=== PATIENT | female | born 1975 ===

== ENCOUNTER 2017-01-14 10:10 | Emergency (ER) | payer MEDICAID, OTHER ==
[2017-01-14 10:13] VITALS: BP 116/58; PULSE 86; RESP 18; TEMP 98.3; O2SAT 99
[2017-01-14 10:14] VITALS: BMI 33.3
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
== END 2017-01-14 13:36 | disposition home or self-care (01) ==
LOC: EDBD → H.ER 10:10
DX: M54.9 Dorsalgia, unspecified (principal); M54.2 Cervicalgia

== ENCOUNTER 2017-01-14 13:54 | Inpatient (IN) | payer OTHER, MEDICAID ==
[2017-01-14 13:54] VITALS: BMI 33.3
--- NOTE | 2017-01-14 14:12 | ED PDOC ---
HPI: General Adult Time Seen by Provider: 01/14/17 14:10 Chief Complaint (Provider): pain History Per: Patient Additional Complaint(s): Patient was seen in ED earlier for low back pain and was treated in ED with PO valium, IM morphine and IM toradol. Patient felt better after meds and was discharged with rx flexeril and prednisone. Patient left ED and got a cup of coffee but when she took a sip of the coffee she felt sharp pain in upper abdomen. She then came back to ED to be seen again. Upon arrival she rates upper abd pain as 7/10, states the pain does not radiate. Patient states the sip of coffee she drank was the first this ate today. Patient denies fever, chills, chest pain SOB or DILL. Past Medical History Reviewed: Historical Data, Nursing Documentation, Vital Signs Vital Signs: Last Vital Signs Temp 98.9 F 01/14/17 14:12 Pulse 64 01/14/17 14:12 Resp 21 01/14/17 14:12 BP 111/59 L 01/14/17 14:12 Pulse Ox 100 01/14/17 19:33 - Medical History PMH: No Chronic Diseases - Surgical History Surgical History: No Surg Hx - Family History Family History: States: No Known Family Hx - Living Arrangements Living Arrangements: With Family - Social History Current smoker - smoking cessation education provided: No Alcohol: None Drugs: Denies - Home Medications Home Medications: Ambulatory Orders Medication Instructions Recorded Metoclopramide [Reglan] 10 mg PO Q6 PRN #20 tab 10/20/15 Cetirizine HCl [Zyrtec] 10 mg PO DAILY #10 capsule 01/14/17 Cyclobenzaprine [Cyclobenzaprine 10 mg PO TID #10 tab 01/14/17 HCl] Methylprednisolone [Medrol Dose 4 mg PO DAILY #21 tab 01/14/17 Pack (21 tabs)] - Allergies Allergies/Adverse Reactions: Allergies Allergy/AdvReac Type Severity Reaction Status Date / Time morphine AdvReac ITCHING Verified 01/14/17 13:36 Review of Systems ROS Statement: Except As Marked, All Systems Reviewed And Found Negative Constitutional: Negative for: Fever Cardiovascular: Negative for: Chest Pain Respiratory: Negative for: Cough Gastrointestinal: Positive for: Abdominal Pain. Negative for: Nausea, Vomiting Physical Exam - Reviewed Nursing Documentation Reviewed: Yes Vital Signs Reviewed: Yes - Physical Exam Appears: Positive for: Well, Non-toxic, No Acute Distress Skin: Negative for: Rash Cardiovascular/Chest: Positive for: Regular Rate, Rhythm Respiratory: Positive for: Normal Breath Sounds Gastrointestinal/Abdominal: Positive for: Normal Exam, Soft, Tenderness (mild RUQ tenderness, no rebound or guarding). Negative for: Distended Back: Negative for: L CVA Tenderness, R CVA Tenderness Extremity: Positive for: Normal ROM. Negative for: Pedal Edema Neurologic/Psych: Positive for: Alert, Oriented - Laboratory Results Result Diagrams: 01/14/17 18:00 01/14/17 18:00 Urine POC: Negative - ECG Interpretation Of ECG: NSR 64 bpm, no acute finding, reviewed by PA and ED attending. O2 Sat by Pulse Oximetry: 100 Pulse Ox Interpretation: Normal - Other Rad Abd US X-Ray: Read By Radiologist X-Ray Interpretation: see below Medical Decision Making Medical Decision Makin41 year old with abdominal pain. Patient is in no distress upon arrival, vital signs are stable. Plan: Glucose POC: 96 Abdominal US Labs US: LIVER: Measures seventeen cm. Patent portal vein. Portal venous flow: Hepatopetal. Variable echogenicity of the liver parenchyma. No mass. No intrahepatic bile duct dilatation. GALLBLADDER: Cholelithiasis. Negative study for gallbladder wall thickening, pericholecystic fluid, sonographic Irwin's sign. Solitary gallstone 2.6 cm in the neck of the gallbladder. COMMON BILE DUCT : Measures 6.0 mm. No stones. No dilatation. PANCREAS: Unremarkable as visualized. No mass. No ductal dilatation. RIGHT KIDNEY: Measures 4.7 x 9.5cm. Normal echogenicity. No calculus, mass, or hydronephrosis. LEFT KIDNEY: Measures 4.8 x 11.4cm. Normal echogenicity. No calculus, mass, or hydronephrosis. SPLEEN: Normal in size and contour. No mass. AORTA: No aneurysmal dilatation. IVC: Unremarkable. OTHER FINDINGS: None. IMPRESSION: Cholelithiasis. No sonographic evidence of acute cholecystitis. No significant interval change compared to the prior examination(s). Dr. Davison, PMD to admit patient. Case d/w Dr. Ortiz, surgery front office manager who will see patient. compliance vice president paged to see patient in ED, Dr. Salazar to come see patient at bedside. Patient is aware of and agrees with admission. Disposition - Clinical Impression Clinical Impression: Gallstones, Elevated liver enzymes - Patient ED Disposition Is Patient to be Admitted: Yes - Disposition Disposition Time: 19:02 Condition: FAIR - Pt Status Changed To: Hospital Disposition Of: Inpatient - Admit Certification Admit to Inpatient:: After my assessment, the patient will require hospitalization for at least two midnights. This is because of the severity of symptoms shown, intensity of services needed, and/or the medical risk in this patient being treated as an outpatient. Results - Lab Results Lab Results: 01/14/17 18:00 WBC 12.9 H RBC 4.95 Hgb 12.2 Hct 39.1 MCV 79.0 L D MCH 24.6 L MCHC 31.1 L RDW 18.2 H Plt Count 305 MPV 8.1 Neut % (Auto) 78.8 H Lymph % (Auto) 13.8 L [place] % (Auto) 6.3 Eos % (Auto) 0.7 Baso % (Auto) 0.4 Neut # 10.2 H Lymph # 1.8 [place] # 0.8 Eos # 0.1 Baso # 0.1 Sodium 143 Potassium 4.1 Chloride 108 H Carbon Dioxide 24 Anion Gap 15 BUN 15 Creatinine 0.6 L Est GFR ( Amer) > 60 Est GFR (Non-Af Amer) > 60 Random Glucose 85 Calcium 8.7 Total Bilirubin 0.7 AST 251 H D ALT 152 H D Alkaline Phosphatase 80 Total Protein 6.7 Albumin 3.7 Globulin 3.0 Albumin/Globulin Ratio 1.2
--- NOTE | 2017-01-14 17:40 | US ---
HISTORY: epigastric/ruq abd pain COMPARISON: 02/07/2013. TECHNIQUE: Sonographic evaluation of the abdomen. FINDINGS: LIVER: Measures seventeen cm. Patent portal vein. Portal venous flow: Hepatopetal. Variable echogenicity of the liver parenchyma. No mass. No intrahepatic bile duct dilatation. GALLBLADDER: Cholelithiasis. Negative study for gallbladder wall thickening, pericholecystic fluid, sonographic Irwin's sign. Solitary gallstone 2.6 cm in the neck of the gallbladder. COMMON BILE DUCT: Measures 6.0 mm. No stones. No dilatation. PANCREAS: Unremarkable as visualized. No mass. No ductal dilatation. RIGHT KIDNEY: Measures 4.7 x 9.5cm. Normal echogenicity. No calculus, mass, or hydronephrosis. LEFT KIDNEY: Measures 4.8 x 11.4cm. Normal echogenicity. No calculus, mass, or hydronephrosis. SPLEEN: Normal in size and contour. No mass. AORTA: No aneurysmal dilatation. IVC: Unremarkable. OTHER FINDINGS: None. IMPRESSION: Cholelithiasis. No sonographic evidence of acute cholecystitis. No significant interval change compared to the prior examination(s).
[2017-01-14 18:13] LABS: BASO # 0.1 K/uL (0.0-0.2); BASO % 0.4 % (0.0-2.0); EOS # 0.1 K/uL (0.0-0.7); EOS % 0.7 % (0.0-4.0); HEMATOCRIT 39.1 % (34.0-47.0); LYMPH # 1.8 K/uL (1.0-4.3); LYMPH % 13.8 % (20.0-40.0); MEAN CORPUSCULAR HEMOGLOBIN 24.6 pg (27.0-31.0); MEAN CORPUSCULAR HGB CONC 31.1 g/dL (33.0-37.0); MEAN PLATELET VOLUME 8.1 fl (7.2-11.7); MONO # 0.8 K/uL (0.0-0.8); MONO % 6.3 % (0.0-10.0); NEUT # 10.2 K/uL (1.8-7.0); NEUT % 78.8 % (50.0-75.0); RED CELL DISTRIBUTION WIDTH 18.2 % (11.5-14.5); WHITE BLOOD COUNT 12.9 K/uL (4.8-10.8)
[2017-01-14 18:22] LABS: ALB/GLOB RATIO 1.2 (1.0-2.1); ALKALINE PHOSPHATASE 80 U/L (38-126); ALT/SGPT 152 U/L (9-52); AST/SGOT 251 U/L (14-36); BILIRUBIN,TOTAL 0.7 mg/dl (0.2-1.3); BLOOD UREA NITROGEN 15 mg/dl (7-17); CALCIUM 8.7 mg/dL (8.4-10.2); CARBON DIOXIDE 24 mmol/L (22-30); CHLORIDE 108 mmol/L (98-107); GFR AFRICAN-AMERICAN > 60; GLUCOSE,RANDOM 85 mg/dL (65-105); POTASSIUM 4.1 MMOL/L (3.6-5.0); SODIUM 143 mmol/l (132-148); TOTAL PROTEIN 6.7 G/DL (6.3-8.2)
[2017-01-14] MEDS ORDERED: Ampicillin/Sulbactam 3 GM in Sodium Chloride 0.9% 100 ML IVPB STA (18:58)
[2017-01-14] MEDS ORDERED: Sodium Chloride 0.9% 1,000 ML IV STA (18:59)
[2017-01-14 20:09] LABS: RBC URINE 4 /hpf (0-3); URINE BACTERIA RARE (<OCC); URINE BILIRUBIN NEGATIVE (NEGATIVE); URINE BLOOD NEGATIVE (NEGATIVE); URINE COLOR YELLOW (YELLOW); URINE GLUCOSE (UA) NEG (Normal); URINE KETONE NEGATIVE (NEGATIVE); URINE LEUKOCYTE ESTERASE MOD Leu/uL (Negative); URINE PROTEIN NEGATIVE (NEGATIVE); URINE UROBILINOGEN 0.2-1.0 mg/dL (0.2-1.0); WBC URINE 62 /hpf (0-5)
[2017-01-14] MEDS ORDERED: Iohexol 240 (50 ml) PO ONE (20:38)
[2017-01-14 20:42] LABS: PARTIAL THROMBOPLASTIN TIME 50.8 SECONDS (23.3-32.5)
--- NOTE | 2017-01-14 20:48 | CP.PCM.CON ---
<Brett Salazar - Last Filed: 01/14/17 20:40> History of Present Illness - History of Present Illness History of Present Illness: General Surgery Consult Re: Cholelithiasis HPI: 41F presented to ED after being see and D/Herve for worsening chronic back pain. After being DCed, pt had a coffee with skim milk and had sudden stabbing RUQ and epigastric pain. She became diaphoretic and had a near syncopal episode. She has never had this pain before. No F/C, N/V/D/C, SOB, chest pain, arm pain, dysuria. When asked to point to where most pain is now she points to RLQ. PMH: Chronic back pain 2/2 herniated discs PSH: Denies SH: +tobacco use, occasional EtOH, No drug use All: NKDA, feels itchy with morphine Meds: Aleve for back pain Review of Systems - Review of Systems All systems: reviewed and no additional remarkable complaints except (as per HPI ) Past Patient History - Infectious Disease Hx of Infectious Diseases: None - Past Social History Alcohol: None Drugs: Denies - CARDIAC Hx Cardiac Disorders: No - PULMONARY Hx Respiratory Disorders: No - NEUROLOGICAL Hx Neurological Disorder: No - HEENT Hx HEENT Problems: No - RENAL Hx Chronic Kidney Disease: No - ENDOCRINE/METABOLIC Hx Endocrine Disorders: No - HEMATOLOGICAL/ONCOLOGICAL Hx Blood Disorders: No - INTEGUMENTARY Hx Dermatological Problems: No - MUSCULOSKELETAL/RHEUMATOLOGICAL Hx Musculoskeletal Disorders: No Other/Comment: sciatica - GASTROINTESTINAL Hx Gastrointestinal Disorders: No - GENITOURINARY/GYNECOLOGICAL Hx Genitourinary Disorders: No - PSYCHIATRIC Hx Psychophysiologic Disorder: No Hx Substance Use: No - SURGICAL HISTORY Hx Surgeries: No - ANESTHESIA Hx Anesthesia: No Meds Allergies/Adverse Reactions: Allergies Allergy/AdvReac Type Severity Reaction Status Date / Time morphine AdvReac ITCHING Verified 01/14/17 13:36 - Medications Medications: Current Medications Sodium Chloride (Sodium Chloride 0.9%) 1,000 mls @ 125 mls/hr IV .Q8H STA Stop: 01/15/17 02:58 Last Admin: 01/14/17 19:08 Dose: 125 mls/hr Iohexol (Omnipaque 240 (50 Ml)) 50 ml PO ONCE ONE Stop: 01/14/17 20:39 Physical Exam - Constitutional Appears: Non-toxic, No Acute Distress - Head Exam Head Exam: ATRAUMATIC, NORMOCEPHALIC - Eye Exam Eye Exam: EOMI. absent: Scleral icterus - ENT Exam ENT Exam: Mucous Membranes Dry Additional comments: trachea midline - Respiratory Exam Respiratory Exam: NORMAL BREATHING PATTERN. absent: Respiratory Distress - Cardiovascular Exam Cardiovascular Exam: RRR, +S1, +S2 - GI/Abdominal Exam GI & Abdominal Exam: Guarding (mild over whole abd), Soft, Tenderness ( diffusely over abdomen ). absent: Distended, Firm, Rebound, Rigid - Rectal Exam Rectal Exam: Deferred - Extremities Exam Extremities exam: Positive for: pedal pulses present. Negative for: calf tenderness, pedal edema - Back Exam Back exam: absent: CVA tenderness (L), CVA tenderness (R) - Neurological Exam Neurological exam: Alert, Oriented x3 - Psychiatric Exam Psychiatric exam: Normal Affect, Normal Mood - Skin Skin Exam: Dry, Warm Results - Vital Signs Recent Vital Signs: Last Vital Signs Temp 98.5 F 01/14/17 20:27 Pulse 68 01/14/17 20:27 Resp 18 01/14/17 20:27 BP 108/51 L 01/14/17 20:27 Pulse Ox 98 01/14/17 20:27 - Labs Result Diagrams: 01/14/17 18:00 01/14/17 18:00 Labs: Laboratory Results - last 24 hr 01/14/17 19:20 Urine Color Yellow Urine Clarity Cloudy Urine pH 6.0 Ur Specific [place] 1.024 Urine Protein Negative Urine Glucose (UA) Neg Urine Ketones Negative Urine Blood Negative Urine Nitrate Negative Urine Bilirubin Negative Urine Urobilinogen 0.2-1.0 Ur Leukocyte Esterase Mod Urine RBC (Auto) 4 H Urine Microscopic WBC 62 H Ur Squamous Epith Cells 46 H Urine Bacteria Rare - Imaging and Cardiology US - abdomen Status: Image reviewed by me, Report reviewed by me Assessment & Plan - Assessment and Plan (Free Text) Assessment: 41F with diffuse abdominal pain and cholelithiasis Plan: CT abd/pelvis with PO&IV contrast to rule out other pathology NPO after PO contrast done. Abx IVF Analgesia Annafran SCDs D/W Dr. Diana Salazar PGY3 <Edi Ortiz - Last Filed: 01/15/17 19:22> History of Present Illness - History of Present Illness History of Present Illness: Patient was seen and examined at the bedside. Agree with resident's note above Meds - Medications Medications: Current Medications Diphenhydramine HCl (Benadryl) 25 mg IVP Q6 PRN PRN Reason: Itching / Pruritus Hydromorphone HCl (Dilaudid) 1 mg IVP Q4 PRN PRN Reason: Pain, severe (8-10) Last Admin: 01/15/17 10:42 Dose: 1 mg Piperacillin Sod/Tazobactam (Sod 3.375 gm/ Sodium Chloride) 100 mls @ 100 mls/ hr IVPB Q6 GINETTE Last Admin: 01/15/17 16:26 Dose: 100 mls/hr Sodium Chloride (Sodium Chloride 0.9%) 1,000 mls @ 125 mls/hr IV .Q8H GINETTE Stop: 01/16/17 08:46 Last Admin: 01/15/17 16:26 Dose: 125 mls/hr Morphine Sulfate (Morphine) 4 mg IVP Q4 PRN PRN Reason: Pain, moderate (4-7) Ondansetron HCl (Zofran Inj) 4 mg IVP Q4 PRN PRN Reason: Nausea/Vomiting Results - Vital Signs Recent Vital Signs: Last Vital Signs Temp 99 F 01/15/17 16:49 Pulse 65 01/15/17 16:49 Resp 18 01/15/17 16:49 BP 110/65 01/15/17 16:49 Pulse Ox 99 01/15/17 16:49 - Labs Result Diagrams: 01/15/17 06:30 01/15/17 06:30 Labs: Laboratory Results - last 24 hr 01/14/17 01/14/17 01/15/17 19:15 19:20 06:30 WBC 9.5 RBC 4.36 Hgb 10.9 L Hct 34.5 MCV 79.1 L MCH 25.1 L MCHC 31.7 L RDW 17.7 H Plt Count 277 PT 18.2 H INR 1.75 H APTT 50.8 H Sodium 141 Potassium 3.5 L Chloride 108 H Carbon Dioxide 23 Anion Gap 14 BUN 13 Creatinine 0.8 Est GFR ( Amer) > 60 Est GFR (Non-Af Amer) > 60 Random Glucose 87 Calcium 8.1 L Total Bilirubin 0.9 AST 321 H D ALT 231 H D Alkaline Phosphatase 83 Total Protein 5.8 L Albumin 3.1 L Globulin 2.6 Albumin/Globulin Ratio 1.2 Urine Color Yellow Urine Clarity Cloudy Urine pH 6.0 Ur Specific [place] 1.024 Urine Protein Negative Urine Glucose (UA) Neg Urine Ketones Negative Urine Blood Negative Urine Nitrate Negative Urine Bilirubin Negative Urine Urobilinogen 0.2-1.0 Ur Leukocyte Esterase Mod Urine RBC (Auto) 4 H Urine Microscopic WBC 62 H Ur Squamous Epith Cells 46 H Urine Bacteria Rare
[2017-01-15] MEDS: Piperacillin/Tazobact 3.375 GM in Sodium Chloride 0.9% 100 ML IVPB SCH ×5 (00:43→21:00)
[2017-01-15] MEDS ORDERED: DiphenhydrAMINE 50 mg/ml Inj IVP STA (03:09)
[2017-01-15] MEDS ORDERED: Iohexol 240 (50 ml) ONE (06:15)
[2017-01-15 08:08] LABS: HEMATOCRIT 34.5 % (34.0-47.0); MEAN CELL VOLUME 79.1 fl (81.0-99.0); MEAN CORPUSCULAR HEMOGLOBIN 25.1 pg (27.0-31.0); MEAN CORPUSCULAR HGB CONC 31.7 g/dL (33.0-37.0); RED CELL DISTRIBUTION WIDTH 17.7 % (11.5-14.5); WHITE BLOOD COUNT 9.5 K/uL (4.8-10.8)
[2017-01-15 08:31] LABS: ALB/GLOB RATIO 1.2 (1.0-2.1); ALKALINE PHOSPHATASE 83 U/L (38-126); ALT/SGPT 231 U/L (9-52); AST/SGOT 321 U/L (14-36); BILIRUBIN,TOTAL 0.9 mg/dl (0.2-1.3); BLOOD UREA NITROGEN 13 mg/dl (7-17); CALCIUM 8.1 mg/dL (8.4-10.2); CARBON DIOXIDE 23 mmol/L (22-30); CHLORIDE 108 mmol/L (98-107); GFR AFRICAN-AMERICAN > 60; GLUCOSE,RANDOM 87 mg/dL (65-105); POTASSIUM 3.5 MMOL/L (3.6-5.0); SODIUM 141 mmol/l (132-148); TOTAL PROTEIN 5.8 G/DL (6.3-8.2)
[2017-01-15] MEDS: Sodium Chloride 0.9% 1,000 ML IV SCH ×3 (08:59→20:33)
--- NOTE | 2017-01-15 09:08 | CP.PCM.PN ---
<Brett Salazar - Last Filed: 01/15/17 09:06> Subjective - Date & Time of Evaluation Date of Evaluation: 01/15/17 Time of Evaluation: 08:50 - Subjective Subjective: General Surgery Pt S&E, NAEO. Pt c/o severe back pain. She has not been getting morphine due to puritis side effect. Finished oral contrast around 6 AM. Objective - Vital Signs/Intake and Output Vital Signs (last 24 hours): Temp Pulse Resp BP Pulse Ox 97.5 F L 98 H 20 110/70 96 01/15/17 07:54 01/15/17 07:54 01/15/17 07:54 01/15/17 07:54 01/15/17 07:54 - Medications Medications: Current Medications Hydromorphone HCl (Dilaudid) 1 mg IVP Q4 PRN PRN Reason: Pain, severe (8-10) Last Admin: 01/14/17 23:55 Dose: 1 mg Piperacillin Sod/Tazobactam (Sod 3.375 gm/ Sodium Chloride) 100 mls @ 100 mls/ hr IVPB Q6 GINETTE Last Admin: 01/15/17 08:59 Dose: 100 mls/hr Sodium Chloride (Sodium Chloride 0.9%) 1,000 mls @ 125 mls/hr IV .Q8H GINETTE Stop: 01/16/17 08:46 Last Admin: 01/15/17 08:59 Dose: 125 mls/hr Morphine Sulfate (Morphine) 4 mg IVP Q4 PRN PRN Reason: Pain, moderate (4-7) Ondansetron HCl (Zofran Inj) 4 mg IVP Q4 PRN PRN Reason: Nausea/Vomiting - Labs Labs: 01/15/17 06:30 PT 18.2 SECONDS (9.6-11.2) H 01/14/17 19:15 INR 1.75 (0.92-1.08) H 01/14/17 19:15 APTT 50.8 SECONDS (23.3-32.5) H 01/14/17 19:15 - Constitutional Appears: Non-toxic, No Acute Distress - Head Exam Head Exam: ATRAUMATIC, NORMOCEPHALIC - Eye Exam Eye Exam: EOMI. absent: Scleral icterus - Respiratory Exam Respiratory Exam: NORMAL BREATHING PATTERN. absent: Respiratory Distress - GI/Abdominal Exam GI & Abdominal Exam: Soft, Tenderness (mild generalized). absent: Distended, Firm, Guarding, Rigid - Back Exam Back Exam: absent: CVA tenderness (L), CVA tenderness (R) - Neurological Exam Neurological Exam: Alert, Awake, Oriented x3 - Skin Skin Exam: Dry, Warm Assessment and Plan - Assessment and Plan (Free Text) Assessment: 41F with diffuse abdominal pain and cholelithiasis Plan: F/U CT scan benadryl for puritis Analgesia IVF F/U CMP NPO Will D/W Dr. Diana Salazar PGY3 <Edi Ortiz - Last Filed: 01/15/17 19:27> Subjective - Date & Time of Evaluation Date of Evaluation: 01/15/17 Time of Evaluation: 19:00 - Subjective Subjective: Patient was seen and examined at the bedside. Agree with resident's note above. CT scan results noted. Patient also has elevated PT/PTT/INR. Objective - Vital Signs/Intake and Output Vital Signs (last 24 hours): Temp Pulse Resp BP Pulse Ox 99 F 65 18 110/65 99 01/15/17 16:49 01/15/17 16:49 01/15/17 16:49 01/15/17 16:49 01/15/17 16:49 - Medications Medications: Current Medications Diphenhydramine HCl (Benadryl) 25 mg IVP Q6 PRN PRN Reason: Itching / Pruritus Hydromorphone HCl (Dilaudid) 1 mg IVP Q4 PRN PRN Reason: Pain, severe (8-10) Last Admin: 01/15/17 10:42 Dose: 1 mg Piperacillin Sod/Tazobactam (Sod 3.375 gm/ Sodium Chloride) 100 mls @ 100 mls/ hr IVPB Q6 GINETTE Last Admin: 01/15/17 16:26 Dose: 100 mls/hr Sodium Chloride (Sodium Chloride 0.9%) 1,000 mls @ 125 mls/hr IV .Q8H GINETTE Stop: 01/16/17 08:46 Last Admin: 01/15/17 16:26 Dose: 125 mls/hr Morphine Sulfate (Morphine) 4 mg IVP Q4 PRN PRN Reason: Pain, moderate (4-7) Ondansetron HCl (Zofran Inj) 4 mg IVP Q4 PRN PRN Reason: Nausea/Vomiting - Labs Labs: 01/15/17 06:30 01/15/17 06:30 PT 18.2 SECONDS (9.6-11.2) H 01/14/17 19:15 INR 1.75 (0.92-1.08) H 01/14/17 19:15 APTT 50.8 SECONDS (23.3-32.5) H 01/14/17 19:15 Assessment and Plan - Assessment and Plan (Free Text) Plan: - Start clear liquid diet - pain control - Repeat labs in am - Repeat PT/PTT in am - Will follow
[2017-01-15] MEDS ORDERED: Iohexol 300 50 ML ONE (09:56)
--- NOTE | 2017-01-15 11:02 | CT ---
PROCEDURE: CT Abdomen and Pelvis with oral and IV contrast. HISTORY: abdominal pain COMPARISON: Abdominal ultrasound performed 01/14/17 TECHNIQUE: Contiguous axial images of the abdomen and pelvis. Oral and IV contrast was administered. Coronal and Sagittal reformats generated and reviewed. Contrast dose: 100 mL Omnipaque Radiation dose: Total exam DLP = 1089.54 mGy-cm. This CT exam was performed using one or more of the following dose reduction techniques: Automated exposure control, adjustment of the mA and/or kV according to patient size, and/or use of iterative reconstruction technique. FINDINGS: LOWER THORAX: Bibasilar atelectasis. No visible pleural effusion or pneumothorax. LIVER: Hypoattenuation of the liver compatible with hepatic steatosis. GALLBLADDER AND BILE DUCTS: Probable gallstone within the gallbladder. Gallbladder distension. Probable mild wall thickening or pericholecystic edema. PANCREAS: Unremarkable. SPLEEN: Unremarkable. ADRENALS: Unremarkable. KIDNEYS AND URETERS: The kidneys enhance symmetrically. No hydronephrosis or obstructing renal calculus. BLADDER: The urinary bladder appears unremarkable. REPRODUCTIVE: Uterus is present. IUD. Probable bilateral ovarian cysts. APPENDIX: The appendix appears within normal limits of caliber. No secondary signs of acute appendicitis. BOWEL: The stomach is nondistended. The bowel loops appear within normal limits of caliber without evidence of intestinal obstruction. Diverticulosis without CT evidence of acute diverticulitis. PERITONEUM: No significant free fluid. No definite free air. LYMPH NODES: No bulky lymphadenopathy identified. VASCULATURE: No aortic aneurysm. BONES: No acute osseous abnormality is detected. OTHER FINDINGS: None. IMPRESSION: Probable gallstone within the gallbladder. Gallbladder distension. Probable mild wall thickening or pericholecystic edema. Correlate clinically for possibility of cholecystitis. Right upper quadrant ultrasound may be considered. Probable bilateral ovarian cysts. Diverticulosis without CT evidence of acute diverticulitis. Hepatic steatosis. Additional incidental findings as above.
--- NOTE | 2017-01-15 11:40 | CP.PCM.HP ---
History of Present Illness - History of Present Illness History of Present Illness: This is a 41 y/o female with hx of gastritis and chronic back pain was admitted for sudden increased colicky pain in the upper GI area . She went initially to the Er for recurrence of back pain was sent home. She decided to have some coffee an after intake started to have abdominal pain. At the Er she was noted to have cholelithiasis and gb wall edema on CT scan but US showed no sign of cholecystitis initial labs showed elevated liver enzymes. AST ALT but bilirubin is normal. Present on Admission - Present on Admission Any Indicators Present on Admission: No History of DVT/PE: No History of Uncontrolled Diabetes: No Urinary Catheter: No Decubitus Ulcer Present: No Past Patient History - Infectious Disease Hx of Infectious Diseases: None - Past Medical History & Family History Past Medical History?: Yes - Past Social History Smoking Status: Current Some Days Smoker - CARDIAC Hx Cardiac Disorders: No - PULMONARY Hx Respiratory Disorders: No - NEUROLOGICAL Hx Neurological Disorder: No - HEENT Hx HEENT Problems: No Other/Comment: Wears eye glasses sometimes - RENAL Hx Chronic Kidney Disease: No - ENDOCRINE/METABOLIC Hx Endocrine Disorders: No - HEMATOLOGICAL/ONCOLOGICAL Hx Blood Disorders: No - INTEGUMENTARY Hx Dermatological Problems: No - MUSCULOSKELETAL/RHEUMATOLOGICAL Hx Musculoskeletal Disorders: No Hx Falls: No - GASTROINTESTINAL Hx Gastrointestinal Disorders: No - GENITOURINARY/GYNECOLOGICAL Hx Genitourinary Disorders: No - PSYCHIATRIC Hx Psychophysiologic Disorder: No Hx Substance Use: No - SURGICAL HISTORY Hx Surgeries: No - ANESTHESIA Hx Anesthesia: Yes Hx Anesthesia Reactions: No Hx Malignant Hyperthermia: No Has any member of the family had a problem w/ anesthesia?: No Meds Allergies/Adverse Reactions: Allergies Allergy/AdvReac Type Severity Reaction Status Date / Time morphine AdvReac ITCHING Verified 01/14/17 13:36 Physical Exam - Head Exam Head Exam: NORMAL INSPECTION - Eye Exam Eye Exam: Normal appearance - ENT Exam ENT Exam: Mucous Membranes Moist - Respiratory Exam Respiratory Exam: Clear to Auscultation Bilateral - Cardiovascular Exam Cardiovascular Exam: REGULAR RHYTHM - GI/Abdominal Exam GI & Abdominal Exam: Guarding, Normal Bowel Sounds, Tenderness - Neurological Exam Neurological exam: CN II-XII Intact Results - Vital Signs Recent Vital Signs: Last Vital Signs Temp 97.5 F L 01/15/17 07:54 Pulse 98 H 01/15/17 07:54 Resp 20 01/15/17 07:54 BP 110/70 01/15/17 07:54 Pulse Ox 96 01/15/17 07:54 - Labs Result Diagrams: 01/15/17 06:30 01/15/17 06:30 Labs: Laboratory Results - last 24 hr 01/14/17 01/14/17 01/15/17 19:15 19:20 06:30 WBC 9.5 RBC 4.36 Hgb 10.9 L Hct 34.5 MCV 79.1 L MCH 25.1 L MCHC 31.7 L RDW 17.7 H Plt Count 277 PT 18.2 H INR 1.75 H APTT 50.8 H Sodium 141 Potassium 3.5 L Chloride 108 H Carbon Dioxide 23 Anion Gap 14 BUN 13 Creatinine 0.8 Est GFR ( Amer) > 60 Est GFR (Non-Af Amer) > 60 Random Glucose 87 Calcium 8.1 L Total Bilirubin 0.9 AST 321 H D ALT 231 H D Alkaline Phosphatase 83 Total Protein 5.8 L Albumin 3.1 L Globulin 2.6 Albumin/Globulin Ratio 1.2 Urine Color Yellow Urine Clarity Cloudy Urine pH 6.0 Ur Specific [place] 1.024 Urine Protein Negative Urine Glucose (UA) Neg Urine Ketones Negative Urine Blood Negative Urine Nitrate Negative Urine Bilirubin Negative Urine Urobilinogen 0.2-1.0 Ur Leukocyte Esterase Mod Urine RBC (Auto) 4 H Urine Microscopic WBC 62 H Ur Squamous Epith Cells 46 H Urine Bacteria Rare Assessment & Plan (2) Cholelithiasis Status: Acute (3) Cholecystitis Status: Acute (4) Abnormal liver enzymes Status: Acute - Assessment and Plan (Free Text) Plan: keep NPO IV fluids IV antibiotics. pantoprazole pain meds. surgical consult medically stable for surgery
--- NOTE | 2017-01-15 12:06 | RAD ---
HISTORY: Medical clearance. COMPARISON: None. FINDINGS: LUNGS: No active pulmonary disease. PLEURA: No significant pleural effusion identified, no pneumothorax apparent. CARDIOVASCULAR: Normal. OSSEOUS STRUCTURES: No significant abnormalities. VISUALIZED UPPER ABDOMEN: Normal. OTHER FINDINGS: None. IMPRESSION: No active disease.
--- NOTE | 2017-01-15 20:55 | CARD ---
APPROVED REPORT EKG Measurement Heart [id number] [place] [id number] <Conclusion> Normal sinus rhythm Normal ECG
[2017-01-15] MEDS: DiphenhydrAMINE 50 mg/ml Inj IVP PRN (21:08)
[2017-01-16] MEDS: Piperacillin/Tazobact 3.375 GM in Sodium Chloride 0.9% 100 ML IVPB SCH ×4 (04:13→21:22)
[2017-01-16 06:07] LABS: BASO % 0.5 % (0.0-2.0); EOS # 0.1 K/uL (0.0-0.7); EOS % 2.1 % (0.0-4.0); HEMATOCRIT 33.1 % (34.0-47.0); LYMPH # 2.1 K/uL (1.0-4.3); LYMPH % 29.6 % (20.0-40.0); MEAN CORPUSCULAR HEMOGLOBIN 24.9 pg (27.0-31.0); MEAN CORPUSCULAR HGB CONC 31.5 g/dL (33.0-37.0); MEAN PLATELET VOLUME 8.5 fl (7.2-11.7); MONO # 0.5 K/uL (0.0-0.8); MONO % 7.2 % (0.0-10.0); NEUT # 4.2 K/uL (1.8-7.0); NEUT % 60.6 % (50.0-75.0); RED CELL DISTRIBUTION WIDTH 18.3 % (11.5-14.5); WHITE BLOOD COUNT 6.9 K/uL (4.8-10.8)
[2017-01-16 06:17] LABS: ALB/GLOB RATIO 1.2 (1.0-2.1); ALKALINE PHOSPHATASE 126 U/L (38-126); ALT/SGPT 410 U/L (9-52); AST/SGOT 431 U/L (14-36); BILIRUBIN,TOTAL 0.9 mg/dl (0.2-1.3); BLOOD UREA NITROGEN 11 mg/dl (7-17); CALCIUM 7.7 mg/dL (8.4-10.2); CARBON DIOXIDE 22 mmol/L (22-30); CHLORIDE 109 mmol/L (98-107); GFR AFRICAN-AMERICAN > 60; GLUCOSE,RANDOM 81 mg/dL (65-105); SODIUM 142 mmol/l (132-148); TOTAL PROTEIN 5.5 G/DL (6.3-8.2)
[2017-01-16 06:25] LABS: PARTIAL THROMBOPLASTIN TIME 26.8 SECONDS (23.3-32.5)
[2017-01-16] MEDS: Sodium Chloride 0.9% 1,000 ML IV SCH ×3 (06:35→09:08)
--- NOTE | 2017-01-16 08:53 | CP.PCM.PN ---
Subjective - Date & Time of Evaluation Date of Evaluation: 01/16/17 Time of Evaluation: 08:48 - Subjective Subjective: Patient remains stable Coags profile today is normal Still with elevated AST ALT Has minimal cough. Objective - Vital Signs/Intake and Output Vital Signs (last 24 hours): Temp Pulse Resp BP Pulse Ox 98.2 F 67 18 110/68 98 01/16/17 08:45 01/16/17 08:45 01/16/17 08:45 01/16/17 08:45 01/16/17 08:45 - Medications Medications: Current Medications Diphenhydramine HCl (Benadryl) 25 mg IVP Q6 PRN PRN Reason: Itching / Pruritus Last Admin: 01/15/17 21:08 Dose: 25 mg Hydromorphone HCl (Dilaudid) 1 mg IVP Q4 PRN PRN Reason: Pain, severe (8-10) Last Admin: 01/16/17 07:59 Dose: 1 mg Piperacillin Sod/Tazobactam (Sod 3.375 gm/ Sodium Chloride) 100 mls @ 100 mls/ hr IVPB Q6 [facility] Last Admin: 01/16/17 04:13 Dose: 100 mls/hr Morphine Sulfate (Morphine) 4 mg IVP Q4 PRN PRN Reason: Pain, moderate (4-7) Ondansetron HCl (Zofran Inj) 4 mg IVP Q4 PRN PRN Reason: Nausea/Vomiting - Labs Labs: 01/16/17 04:45 01/16/17 04:45 PT 10.5 SECONDS (9.6-11.2) D 01/16/17 04:45 INR 1.01 (0.92-1.08) D 01/16/17 04:45 APTT 26.8 SECONDS (23.3-32.5) D 01/16/17 04:45 - Head Exam Head Exam: NORMAL INSPECTION - Eye Exam Eye Exam: Normal appearance - ENT Exam ENT Exam: Mucous Membranes Moist - Respiratory Exam Respiratory Exam: Decreased Breath Sounds - Cardiovascular Exam Cardiovascular Exam: REGULAR RHYTHM - GI/Abdominal Exam GI & Abdominal Exam: Normal Bowel Sounds Assessment and Plan (2) Cholelithiasis Status: Acute (3) Cholecystitis Status: Acute (4) Abnormal liver enzymes Status: Acute - Assessment and Plan (Free Text) Plan: Cont meds Cont tx IV antibiotics Clear liquids Discussed with Dr Owen Plan to do surgery in AM.
--- NOTE | 2017-01-16 09:12 | CP.PCM.PN ---
<Brett Salazar - Last Filed: 01/16/17 09:10> Subjective - Date & Time of Evaluation Date of Evaluation: 01/16/17 Time of Evaluation: 07:30 - Subjective Subjective: General Surgery Pt S&E, NAEO. still with R abd pain. No other C/O at this time Objective - Vital Signs/Intake and Output Vital Signs (last 24 hours): Temp Pulse Resp BP Pulse Ox 98.2 F 67 18 110/68 98 01/16/17 08:45 01/16/17 08:45 01/16/17 08:45 01/16/17 08:45 01/16/17 08:45 - Medications Medications: Current Medications Diphenhydramine HCl (Benadryl) 25 mg IVP Q6 PRN PRN Reason: Itching / Pruritus Last Admin: 01/15/17 21:08 Dose: 25 mg Hydromorphone HCl (Dilaudid) 1 mg IVP Q4 PRN PRN Reason: Pain, severe (8-10) Last Admin: 01/16/17 07:59 Dose: 1 mg Piperacillin Sod/Tazobactam (Sod 3.375 gm/ Sodium Chloride) 100 mls @ 100 mls/ hr IVPB Q6 [facility]TE Last Admin: 01/16/17 09:08 Dose: 100 mls/hr Morphine Sulfate (Morphine) 4 mg IVP Q4 PRN PRN Reason: Pain, moderate (4-7) Ondansetron HCl (Zofran Inj) 4 mg IVP Q4 PRN PRN Reason: Nausea/Vomiting - Labs Labs: 01/16/17 04:45 01/16/17 04:45 PT 10.5 SECONDS (9.6-11.2) D 01/16/17 04:45 INR 1.01 (0.92-1.08) D 01/16/17 04:45 APTT 26.8 SECONDS (23.3-32.5) D 01/16/17 04:45 - Constitutional Appears: Non-toxic, No Acute Distress - Head Exam Head Exam: ATRAUMATIC, NORMOCEPHALIC - Eye Exam Eye Exam: EOMI. absent: Scleral icterus - Respiratory Exam Respiratory Exam: NORMAL BREATHING PATTERN. absent: Respiratory Distress - Cardiovascular Exam Cardiovascular Exam: RRR - GI/Abdominal Exam GI & Abdominal Exam: Guarding (mild), Soft, Tenderness (in R abdomen and epigastrum). absent: Distended, Firm, Rigid, Rebound - Neurological Exam Neurological Exam: Alert, Awake, Oriented x3 - Skin Skin Exam: Dry, Warm Assessment and Plan - Assessment and Plan (Free Text) Assessment: 41F with diffuse abdominal pain and cholelithiasis Plan: Analgesia IVF MRCP ordered NPO D/W Dr. Diana Salazar PGY3 <Edi Ortiz - Last Filed: 01/16/17 13:25> Subjective - Date & Time of Evaluation Date of Evaluation: 01/16/17 Time of Evaluation: 12:30 - Subjective Subjective: Patient was seen and examined at the bedside. Agree with resident's note above. Objective - Vital Signs/Intake and Output Vital Signs (last 24 hours): Temp Pulse Resp BP Pulse Ox 98.2 F 67 18 110/68 98 01/16/17 08:45 01/16/17 08:45 01/16/17 08:45 01/16/17 08:45 01/16/17 08:45 - Medications Medications: Current Medications Diphenhydramine HCl (Benadryl) 25 mg IVP Q6 PRN PRN Reason: Itching / Pruritus Last Admin: 01/15/17 21:08 Dose: 25 mg Hydromorphone HCl (Dilaudid) 1 mg IVP Q4 PRN PRN Reason: Pain, severe (8-10) Last Admin: 01/16/17 07:59 Dose: 1 mg Piperacillin Sod/Tazobactam (Sod 3.375 gm/ Sodium Chloride) 100 mls @ 100 mls/ hr IVPB Q6 G[facility]ETTE Last Admin: 01/16/17 09:08 Dose: 100 mls/hr Dextrose/Sodium Chloride (Dextrose 5%/0.45% Ns 1000 Ml) 1,000 mls @ 100 mls/hr IV .Q10H [facility]TE Stop: 01/17/17 09:16 Last Admin: 01/16/17 11:45 Dose: 100 mls/hr Morphine Sulfate (Morphine) 4 mg IVP Q4 PRN PRN Reason: Pain, moderate (4-7) Ondansetron HCl (Zofran Inj) 4 mg IVP Q4 PRN PRN Reason: Nausea/Vomiting - Labs Labs: 01/16/17 04:45 04/17/17 04:45 PT 10.5 SECONDS (9.6-11.2) D 01/16/17 04:45 INR 1.01 (0.92-1.08) D 01/16/17 04:45 APTT 26.8 SECONDS (23.3-32.5) D 01/16/17 04:45 Assessment and Plan - Assessment and Plan (Free Text) Plan: LFTs are trending up - Will get MRCp to r/o choledocholithiasis - Pain control - IV fluids - Repeat labs in am - Will follow
[2017-01-16] MEDS: Dextrose 5%/0.45% NS 1,000 ML IV SCH ×2 (11:45→19:36)
--- NOTE | 2017-01-16 15:36 | MRI ---
MRCP Indication: Rule out choledocholithiasis Technique: Multiplanar, multisequence MR images of the abdomen were obtained, including heavily T2 weighted MRCP images of the biliary system. Rotating maximum intensity projection images of the biliary system were generated. A total of 589 images were submitted for review. Comparison: CT abdomen pelvis with contrast performed 01/15/17 Findings: Mild hepatic steatosis. Cholelithiasis. There is no intrahepatic biliary ductal dilatation. The common bile duct appears top normal in diameter measuring approximately 6 mm and tapers distally. The pancreatic duct appears within normal limits of caliber. No filling defects are seen in the common bile duct or pancreatic duct. The noncontrast adrenal glands, kidneys, spleen, and pancreas appear grossly unremarkable. No bulky abdominal lymphadenopathy is seen. No ascites. No acute osseous abnormality is detected. Impression: Cholelithiasis. No filling defects seen within the common bile duct which appears within normal limits of caliber. Preliminary impression was provided by virtual radiologic.
[2017-01-16] MEDS: DiphenhydrAMINE 50 mg/ml Inj IVP PRN ×2 (16:26→23:07)
[2017-01-17] MEDS ORDERED: DiphenhydrAMINE 50 mg/ml Inj IVP ONE (01:39)
[2017-01-17] MEDS: Piperacillin/Tazobact 3.375 GM in Sodium Chloride 0.9% 100 ML IVPB SCH ×4 (04:54→21:31)
[2017-01-17 05:35] LABS: BASO % 0.5 % (0.0-2.0); EOS # 0.2 K/uL (0.0-0.7); EOS % 2.6 % (0.0-4.0); HEMATOCRIT 32.3 % (34.0-47.0); LYMPH # 2.1 K/uL (1.0-4.3); LYMPH % 32.9 % (20.0-40.0); MEAN CORPUSCULAR HEMOGLOBIN 25.1 pg (27.0-31.0); MEAN CORPUSCULAR HGB CONC 31.7 g/dL (33.0-37.0); MEAN PLATELET VOLUME 8.3 fl (7.2-11.7); MONO # 0.5 K/uL (0.0-0.8); MONO % 8.6 % (0.0-10.0); NEUT # 3.5 K/uL (1.8-7.0); NEUT % 55.4 % (50.0-75.0); NRBC % 0.1 % (0.0-0.0); RED CELL DISTRIBUTION WIDTH 17.5 % (11.5-14.5); WHITE BLOOD COUNT 6.3 K/uL (4.8-10.8)
[2017-01-17 05:45] LABS: ALB/GLOB RATIO 1.1 (1.0-2.1); ALKALINE PHOSPHATASE 164 U/L (38-126); ALT/SGPT 437 U/L (9-52); AST/SGOT 345 U/L (14-36); BILIRUBIN,TOTAL 0.9 mg/dl (0.2-1.3); BLOOD UREA NITROGEN 8 mg/dl (7-17); CALCIUM 8.4 mg/dL (8.4-10.2); CARBON DIOXIDE 21 mmol/L (22-30); CHLORIDE 108 mmol/L (98-107); GFR AFRICAN-AMERICAN > 60; GLUCOSE,RANDOM 90 mg/dL (65-105); POTASSIUM 3.5 MMOL/L (3.6-5.0); SODIUM 142 mmol/l (132-148)
[2017-01-17] MEDS: Dextrose 5%/0.45% NS 1,000 ML IV SCH (06:01)
--- NOTE | 2017-01-17 07:41 | CP.PCM.PN ---
<Maci Atkins - Last Filed: 01/17/17 07:38> Subjective - Date & Time of Evaluation Date of Evaluation: 01/17/17 Time of Evaluation: 07:38 - Subjective Subjective: General Surgery - Dr. Ortiz Pt S&E. LEE ANN. Pt with RUQ abdominal pain, controlled with meds. She denies any N/V, remains NPO. No F/C, SOB/Cp. Objective - Vital Signs/Intake and Output Vital Signs (last 24 hours): Temp Pulse Resp BP Pulse Ox 98.7 F 57 L 18 124/82 99 01/16/17 20:17 01/16/17 20:17 01/16/17 20:17 01/16/17 20:17 01/16/17 20:17 - Medications Medications: Current Medications Diphenhydramine HCl (Benadryl) 25 mg IVP Q6 PRN PRN Reason: Itching / Pruritus Last Admin: 01/16/17 23:07 Dose: 25 mg Hydromorphone HCl (Dilaudid) 1 mg IVP Q4 PRN PRN Reason: Pain, severe (8-10) Last Admin: 01/16/17 23:06 Dose: 1 mg Piperacillin Sod/Tazobactam (Sod 3.375 gm/ Sodium Chloride) 100 mls @ 100 mls/ hr IVPB Q6 G[facility]ETTE Last Admin: 01/17/17 04:54 Dose: 100 mls/hr Dextrose/Sodium Chloride (Dextrose 5%/0.45% Ns 1000 Ml) 1,000 mls @ 100 mls/hr IV .Q10H [facility] Stop: 01/17/17 09:16 Last Admin: 01/17/17 06:01 Dose: Not Given Morphine Sulfate (Morphine) 4 mg IVP Q4 PRN PRN Reason: Pain, moderate (4-7) Last Admin: 01/16/17 15:19 Dose: 4 mg Ondansetron HCl (Zofran Inj) 4 mg IVP Q4 PRN PRN Reason: Nausea/Vomiting - Labs Labs: 01/17/17 04:35 01/17/17 04:35 PT 10.5 SECONDS (9.6-11.2) D 01/16/17 04:45 INR 1.01 (0.92-1.08) D 01/16/17 04:45 APTT 26.8 SECONDS (23.3-32.5) D 01/16/17 04:45 - Constitutional Appears: No Acute Distress - Head Exam Head Exam: ATRAUMATIC, NORMAL INSPECTION, NORMOCEPHALIC - Eye Exam Eye Exam: Normal appearance - Respiratory Exam Respiratory Exam: NORMAL BREATHING PATTERN. absent: Respiratory Distress - Cardiovascular Exam Cardiovascular Exam: REGULAR RHYTHM - GI/Abdominal Exam GI & Abdominal Exam: Soft, Tenderness (RUQ, epigastric). absent: Distended, Guarding, Rigid, Rebound - Neurological Exam Neurological Exam: Alert, Oriented x3 - Psychiatric Exam Psychiatric exam: Normal Affect, Normal Mood - Skin Skin Exam: Dry, Intact Assessment and Plan - Assessment and Plan (Free Text) Assessment: 41F w/ Cholelithiasis, transaminitis -MRCP negative for choledocholithiasis -LFTs remain elevated -Continue NPO, pain control, IVF -Will DW Dr Diana Atkins PGY2 <Edi Ortiz - Last Filed: 01/17/17 15:23> Subjective - Date & Time of Evaluation Date of Evaluation: 01/17/17 Time of Evaluation: 14:15 - Subjective Subjective: Patient was seen and examined at the bedside. Agree with resident's note above Objective - Vital Signs/Intake and Output Vital Signs (last 24 hours): Temp Pulse Resp BP Pulse Ox 98.6 F 49 L 20 100/59 L 96 01/17/17 08:27 01/17/17 08:27 01/17/17 08:27 01/17/17 08:27 01/17/17 08:27 - Medications Medications: Current Medications Diphenhydramine HCl (Benadryl) 25 mg IVP Q6 PRN PRN Reason: Itching / Pruritus Last Admin: 01/17/17 13:16 Dose: 25 mg Hydromorphone HCl (Dilaudid) 1 mg IVP Q4 PRN PRN Reason: Pain, severe (8-10) Last Admin: 01/17/17 12:25 Dose: 1 mg Piperacillin Sod/Tazobactam (Sod 3.375 gm/ Sodium Chloride) 100 mls @ 100 mls/ hr IVPB Q6 GINETTE Last Admin: 01/17/17 09:52 Dose: 100 mls/hr Potassium Chloride/Sodium Chloride (Potassium Chl 20 Meq In Ns) 1,000 mls @ 99.01 mls/hr IV .Q10H6M [facility] Last Admin: 01/17/17 12:16 Dose: 99.01 mls/hr Morphine Sulfate (Morphine) 4 mg IVP Q4 PRN PRN Reason: Pain, moderate (4-7) Last Admin: 01/16/17 15:19 Dose: 4 mg Ondansetron HCl (Zofran Inj) 4 mg IVP Q4 PRN PRN Reason: Nausea/Vomiting Pantoprazole Sodium (Protonix Inj) 40 mg IVP DAILY [facility] Last Admin: 01/17/17 12:16 Dose: 40 mg - Labs Labs: 01/17/17 04:35 01/17/17 04:35 PT 10.5 SECONDS (9.6-11.2) D 01/16/17 04:45 INR 1.01 (0.92-1.08) D 01/16/17 04:45 APTT 26.8 SECONDS (23.3-32.5) D 01/16/17 04:45 Assessment and Plan - Assessment and Plan (Free Text) Plan: - Clear liquid diet - NPO after midnight - Plan for cholecystectomy tomorrow
[2017-01-17] MEDS: Potassium CL 10 MEQ/50 ML 50 ML IVPB SCH ×2 (08:38→09:51)
[2017-01-17] MEDS: Potassium Chl 20 mEq in NS 1,000 ML IV SCH ×2 (12:16→20:40)
[2017-01-17] MEDS: DiphenhydrAMINE 50 mg/ml Inj IVP PRN ×2 (13:16→18:16)
[2017-01-18] MEDS: DiphenhydrAMINE 50 mg/ml Inj IVP PRN ×2 (00:30→21:45)
[2017-01-18] MEDS: Piperacillin/Tazobact 3.375 GM in Sodium Chloride 0.9% 100 ML IVPB SCH ×2 (04:53→09:37)
--- NOTE | 2017-01-18 09:26 | CP.PCM.PN ---
Subjective - Date & Time of Evaluation Date of Evaluation: 01/17/17 Time of Evaluation: 09:23 - Subjective Subjective: patient continues to have pain scheduled for surgery Has no vomiting has no fever. Objective - Vital Signs/Intake and Output Vital Signs (last 24 hours): Temp Pulse Resp BP Pulse Ox 989.6 F H 48 L 20 105/65 97 01/18/17 08:14 01/18/17 08:14 01/18/17 08:14 01/18/17 08:14 01/18/17 08:14 - Medications Medications: Current Medications Diphenhydramine HCl (Benadryl) 25 mg IVP Q6 PRN PRN Reason: Itching / Pruritus Last Admin: 01/18/17 00:30 Dose: 25 mg Hydromorphone HCl (Dilaudid) 1 mg IVP Q4 PRN PRN Reason: Pain, severe (8-10) Last Admin: 01/17/17 21:09 Dose: 1 mg Piperacillin Sod/Tazobactam (Sod 3.375 gm/ Sodium Chloride) 100 mls @ 100 mls/ hr IVPB Q6 [facility] Last Admin: 01/18/17 04:53 Dose: 100 mls/hr Potassium Chloride/Sodium Chloride (Potassium Chl 20 Meq In Ns) 1,000 mls @ 99.01 mls/hr IV .Q10H6M [facility] Last Admin: 01/17/17 20:40 Dose: Not Given Morphine Sulfate (Morphine) 4 mg IVP Q4 PRN PRN Reason: Pain, moderate (4-7) Last Admin: 01/16/17 15:19 Dose: 4 mg Ondansetron HCl (Zofran Inj) 4 mg IVP Q4 PRN PRN Reason: Nausea/Vomiting Last Admin: 01/17/17 19:57 Dose: 4 mg Pantoprazole Sodium (Protonix Inj) 40 mg IVP DAILY [facility] Last Admin: 01/17/17 12:16 Dose: 40 mg - Labs Labs: 01/17/17 04:35 01/17/17 04:35 PT 10.5 SECONDS (9.6-11.2) D 01/16/17 04:45 INR 1.01 (0.92-1.08) D 01/16/17 04:45 APTT 26.8 SECONDS (23.3-32.5) D 01/16/17 04:45 - Head Exam Head Exam: NORMAL INSPECTION - Eye Exam Eye Exam: Normal appearance - ENT Exam ENT Exam: Mucous Membranes Moist - Respiratory Exam Respiratory Exam: Clear to Ausculation Bilateral - Cardiovascular Exam Cardiovascular Exam: REGULAR RHYTHM - GI/Abdominal Exam GI & Abdominal Exam: Normal Bowel Sounds - Neurological Exam Neurological Exam: CN II-XII Intact, Oriented x3 - Psychiatric Exam Psychiatric exam: Normal Mood Assessment and Plan (2) Cholelithiasis Status: Acute (3) Cholecystitis Status: Acute (4) Abnormal liver enzymes Status: Acute - Assessment and Plan (Free Text) Plan: Cont meds Cont tx Cont NPO IV fluids medically stable for surgery MRCP showed cholelithiasis but no CBD stone
--- NOTE | 2017-01-18 09:28 | CP.PCM.PN ---
Subjective - Date & Time of Evaluation Date of Evaluation: 01/18/17 Time of Evaluation: 09:26 - Subjective Subjective: patient still has a lot of back pain. Noted elevated AST ALT MRCP showed no CBD stone. Objective - Vital Signs/Intake and Output Vital Signs (last 24 hours): Temp Pulse Resp BP Pulse Ox 989.6 F H 48 L 20 105/65 97 01/18/17 08:14 01/18/17 08:14 01/18/17 08:14 01/18/17 08:14 01/18/17 08:14 - Medications Medications: Current Medications Diphenhydramine HCl (Benadryl) 25 mg IVP Q6 PRN PRN Reason: Itching / Pruritus Last Admin: 01/18/17 00:30 Dose: 25 mg Hydromorphone HCl (Dilaudid) 1 mg IVP Q4 PRN PRN Reason: Pain, severe (8-10) Last Admin: 01/17/17 21:09 Dose: 1 mg Piperacillin Sod/Tazobactam (Sod 3.375 gm/ Sodium Chloride) 100 mls @ 100 mls/ hr IVPB Q6 [facility] Last Admin: 01/18/17 04:53 Dose: 100 mls/hr Potassium Chloride/Sodium Chloride (Potassium Chl 20 Meq In Ns) 1,000 mls @ 99.01 mls/hr IV .Q10H6M [facility] Last Admin: 01/17/17 20:40 Dose: Not Given Morphine Sulfate (Morphine) 4 mg IVP Q4 PRN PRN Reason: Pain, moderate (4-7) Last Admin: 01/16/17 15:19 Dose: 4 mg Ondansetron HCl (Zofran Inj) 4 mg IVP Q4 PRN PRN Reason: Nausea/Vomiting Last Admin: 01/17/17 19:57 Dose: 4 mg Pantoprazole Sodium (Protonix Inj) 40 mg IVP DAILY [facility] Last Admin: 01/17/17 12:16 Dose: 40 mg - Labs Labs: 01/17/17 04:35 01/17/17 04:35 PT 10.5 SECONDS (9.6-11.2) D 01/16/17 04:45 INR 1.01 (0.92-1.08) D 01/16/17 04:45 APTT 26.8 SECONDS (23.3-32.5) D 01/16/17 04:45 - Head Exam Head Exam: NORMAL INSPECTION - Eye Exam Eye Exam: Normal appearance - Respiratory Exam Respiratory Exam: Clear to Ausculation Bilateral - Cardiovascular Exam Cardiovascular Exam: REGULAR RHYTHM - GI/Abdominal Exam GI & Abdominal Exam: Tenderness - Neurological Exam Neurological Exam: CN II-XII Intact, Oriented x3 Assessment and Plan (1) Cholelithiasis Status: Acute (2) Cholecystitis Status: Acute (3) Abnormal liver enzymes Status: Acute - Assessment and Plan (Free Text) Plan: cont meds Keep NPO for surgery today cont pain meds
[2017-01-18] MEDS ORDERED: Lidocaine 1% Inj (20ml) ONE (10:16)
[2017-01-18] MEDS ORDERED: Bupivacaine 0.5% Inj(30mL) ONE (10:16)
[2017-01-18] MEDS ORDERED: Midazolam 2 MG/2 ML VIAL ONE (10:41)
[2017-01-18] MEDS ORDERED: Propofol 10 mg/ml Inj (20 ML) ONE (10:41)
[2017-01-18] MEDS ORDERED: Rocuronium 10 mg/ml (5 ml) ONE (10:41)
[2017-01-18] MEDS ORDERED: Neostigmine Methylsulfate 3mg/3ml Syringe IV ONE (10:42)
[2017-01-18] MEDS ORDERED: Succinylcholine 200 mg/10 ml Inj IV ONE (10:42)
[2017-01-18 10:43] LABS: BASO % 0.8 % (0.0-2.0); EOS # 0.1 K/uL (0.0-0.7); EOS % 2.3 % (0.0-4.0); HEMATOCRIT 37.4 % (34.0-47.0); LYMPH # 1.6 K/uL (1.0-4.3); LYMPH % 27.9 % (20.0-40.0); MEAN CELL VOLUME 78.3 fl (81.0-99.0); MEAN CORPUSCULAR HEMOGLOBIN 25.4 pg (27.0-31.0); MEAN CORPUSCULAR HGB CONC 32.5 g/dL (33.0-37.0); MEAN PLATELET VOLUME 8.3 fl (7.2-11.7); MONO # 0.4 K/uL (0.0-0.8); MONO % 7.4 % (0.0-10.0); NEUT # 3.5 K/uL (1.8-7.0); NEUT % 61.6 % (50.0-75.0); NRBC % 0.1 % (0.0-0.0); RED CELL DISTRIBUTION WIDTH 17.4 % (11.5-14.5); WHITE BLOOD COUNT 5.7 K/uL (4.8-10.8)
[2017-01-18 10:57] LABS: CHLORIDE 105 mmol/L (98-107); POTASSIUM 4.2 MMOL/L (3.6-5.0); SODIUM 136 mmol/l (132-148)
[2017-01-18 10:59] LABS: BILIRUBIN,TOTAL 1.1 mg/dl (0.2-1.3)
[2017-01-18 11:00] LABS: ALB/GLOB RATIO 1.3 (1.0-2.1); ALKALINE PHOSPHATASE 170 U/L (38-126); AST/SGOT 123 U/L (14-36); CALCIUM 8.7 mg/dL (8.4-10.2); CARBON DIOXIDE 22 mmol/L (22-30); GLUCOSE,RANDOM 77 mg/dL (65-105); TOTAL PROTEIN 7.8 G/DL (6.3-8.2)
[2017-01-18] MEDS ORDERED: Lactated Ringer's 1,000 ML IV ONE (11:04)
[2017-01-18 11:22] LABS: ALT/SGPT 325 U/L (9-52); BLOOD UREA NITROGEN 8 mg/dl (7-17); GFR AFRICAN-AMERICAN > 60
[2017-01-18] MEDS ORDERED: Lactated Ringer's 500 ML IV ONE (11:55)
--- NOTE | 2017-01-18 12:43 | PCM.SURG1 ---
Surgeon's Initial Post Op Note - Surgeon's Notes Surgeon: Dr. Ortiz Supervisor Tumblers: Dr. Pendleton, Dr Salazar PGY3; Dr Atkins PGY2 Type of Anesthesia: General Endo Anesthesia Administered By: Carolin Pre-Operative Diagnosis: Cholecystitis/Cholelithiasis Operative Findings: chronic cholecystitis, cholelithiasis Post-Operative Diagnosis: Chronic cholecystitis Operation Performed: laparoscopic Cholecystectomy Specimen/Specimens Removed: gallbladder Estimated Blood Loss: EBL {In ML}: 5 Blood Products Given: N/A Drains Used: No Drains Post-Op Condition: Good Date of Surgery/Procedure: 01/18/17 Time of Surgery/Procedure: 12:43
[2017-01-18] MEDS: HYDROmorphone 0.5 mg/0.5 ml ISec IVP PRN ×2 (12:55→13:30)
[2017-01-18] MEDS ORDERED: DiphenhydrAMINE 50 mg/ml Inj IVP ONE (14:14)
--- NOTE | 2017-01-18 14:28 | OP ---
PROCEDURE DATE: 01/18/2017 PREOPERATIVE DIAGNOSIS: Cholecystitis. POSTOPERATIVE DIAGNOSIS: Cholecystitis. PROCEDURE: Laparoscopic cholecystectomy. SURGEON: Edi Ortiz MD TUBE CLOSING MACHINE OPERATOR: Devin. SECOND TOWER EXCAVATOR OPERATOR: Wilbert. ANESTHESIA: General with endotracheal intubation. INTRAVENOUS FLUIDS: Crystalloids. ESTIMATED BLOOD LOSS: 10 mL. INTRAOPERATIVE FINDINGS: Cholecystitis, cholelithiasis. SPECIMEN: Gallbladder with stone. BRIEF HISTORY: The patient is a very pleasant 41-year-old female who came to the hospital complaining of nonspecific right-sided abdominal pain. Upon further investigation, the patient was found to have cholelithiasis; however, the patient's liver enzymes were trending up, so MRCP was obtained that did not reveal any choledocholithiasis. All the risks and benefits of the procedure were explained to the patient and with the patient having a full understanding of all the risks and benefits involved, informed consent was obtained and the patient was taken to the operating room for above stated procedure. PROCEDURE: The patient was brought into the operating room and placed supine on the operating table. Bilateral Flowtron boots were applied to patient's lower extremities. After successful induction of anesthesia and successful endotracheal intubation by the anesthesia team, the patient's abdomen was prepped with ChloraPrep stick and draped in the standard surgical fashion. Prior to the beginning of the procedure, timeout was called in the room and everyone in the room were in agreement. Using Veress needle, patient's abdomen was entered at the umbilicus and pneumoperitoneum was achieved with good opening pressures. Once this was accomplished, using an 11 blade scalpel knife , approximately 1 cm incision was made in a longitudinal fashion in the umbilicus and subsequent to that, the 11 mm trocar was introduced into the patient's abdomen. Subsequent to that, a 5 mm 0-degree scope was introduced into the patient's abdomen and abdomen was inspected. We immediately were able to visualize the gallbladder that appeared to be inflamed, also appeared to have chronic inflammation. Attention was turned to the subxiphoid area. Using 11 blade scalpel knife, a 5 mm incision was made in the transverse fashion and subsequent to that, another 5 mm trocar was introduced into the patient's abdomen. At that point in time, attention was turned to the right side of the patient's abdomen. Using 11 blade scalpel knife, two 5 mm incisions were made on the right side of the patient's abdomen in a transverse fashion and subsequent to that, two 5 mm trocars were introduced into the patient's abdomen. At that point in time, gallbladder was grasped at the fundus and the infundibulum and using [place] dissector, the cystic duct and cystic artery were dissected out and critical view of safety was achieved. At that point in time, cystic duct was clipped with 2 clips proximal and 1 distal and transected with laparoscopic scissor. Same thing was done for the cystic artery. It was clipped with 2 clips proximal, 1 distal and transected with laparoscopic scissor. At that point in time, gallbladder was dissected off the gallbladder fossa using hook electrical cautery and once the gallbladder was completely freed up from the gallbladder fossa, EndoCatch bag was introduced into the patient's abdomen and gallbladder was placed inside of the bag and the bag was closed. At that point in time, gallbladder fossa was inspected for hemostasis. Hemostasis was achieved with hook electrical cautery. The patient's gallbladder fossa and abdominal cavity were copiously irrigated with sterile saline and the fluid was suctioned out. At that point in time, 11 mm trocar together with EndoCatch bag and the gallbladder were removed from the patient's abdomen and passed off to the [facility] as a specimen. Fascial layer at the umbilical port site was closed with one interrupted 0 Vicryl suture on the UR-5 needle in a [id number] fashion and at that point in time, the patient's abdomen was fully desufflated. The rest of the trocars were removed from the patient's abdomen and skin was closed with 4-0 Monocryl suture in a running subcuticular fashion. At the end of the procedure, incision sites were infiltrated with Marcaine anesthetic. The patient's abdomen was washed and dried and Dermabond was applied to the incision sites. The patient was successfully extubated by the anesthesia team, transferred to the stretcher and taken to the recovery room in a stable condition. At the end of the procedure, all instrument counts, needles and sponges were correct. Edi Ortiz MD cc: [id number] TT: 01/18/2017 14:27:18 elsa MIKE
[2017-01-19] MEDS ORDERED: Oxycodone/Acetaminophen 5/325 mg Tab PO PRN (00:18)
[2017-01-19] MEDS: Oxycodone/Acetaminophen 5/325 mg Tab PO PRN ×3 (06:20→15:49)
[2017-01-19] MEDS: Potassium Chl 20 mEq in NS 1,000 ML IV SCH (06:23)
[2017-01-19 07:24] LABS: ALB/GLOB RATIO 1.2 (1.0-2.1); ALKALINE PHOSPHATASE 182 U/L (38-126); ALT/SGPT 392 U/L (9-52); AST/SGOT 218 U/L (14-36); BILIRUBIN,TOTAL 0.8 mg/dl (0.2-1.3); BLOOD UREA NITROGEN 6 mg/dl (7-17); CALCIUM 8.4 mg/dL (8.4-10.2); CARBON DIOXIDE 20 mmol/L (22-30); CHLORIDE 106 mmol/L (98-107); GFR AFRICAN-AMERICAN > 60; GLUCOSE,RANDOM 74 mg/dL (65-105); POTASSIUM 3.9 MMOL/L (3.6-5.0); SODIUM 141 mmol/l (132-148); TOTAL PROTEIN 6.8 G/DL (6.3-8.2)
[2017-01-19 07:28] LABS: BASO % 0.5 % (0.0-2.0); EOS # 0.1 K/uL (0.0-0.7); EOS % 1.7 % (0.0-4.0); HEMATOCRIT 36.5 % (34.0-47.0); LYMPH # 1.5 K/uL (1.0-4.3); LYMPH % 21.2 % (20.0-40.0); MEAN CORPUSCULAR HEMOGLOBIN 25.4 pg (27.0-31.0); MEAN CORPUSCULAR HGB CONC 32.5 g/dL (33.0-37.0); MEAN PLATELET VOLUME 8.9 fl (7.2-11.7); MONO # 0.7 K/uL (0.0-0.8); MONO % 9.2 % (0.0-10.0); NEUT # 4.9 K/uL (1.8-7.0); NEUT % 67.4 % (50.0-75.0); RED CELL DISTRIBUTION WIDTH 17.1 % (11.5-14.5); WHITE BLOOD COUNT 7.2 K/uL (4.8-10.8)
--- NOTE | 2017-01-19 10:04 | CP.PCM.DIS ---
Provider - Provider Date of Admission: 01/14/17 18:43 Attending physician: Austin Davison MD Primary care physician: Austin Davison MD Diagnosis - Discharge Diagnosis (1) Cholelithiasis Status: Acute (2) Cholecystitis Status: Acute (3) Abnormal liver enzymes Status: Acute Hospital Course - Lab Results Lab Results: Micro Results 01/14/17 19:15 Blood Blood Culture - Preliminary NO GROWTH AFTER 4 DAYS 01/17/17 12:46 Urine,Clean Catch Urine Culture - Final No Growth (<1,000 CFU/ML) 01/14/17 19:20 Urine Urine Culture - Final MULTIPLE SPECIES. SUGGEST REPEAT SPECIMEN. Most Recent Lab Values WBC 7.2 K/uL (4.8-10.8) 01/19/17 06:44 RBC 4.68 Mil/uL (3.80-5.20) 01/19/17 06:44 Hgb 11.9 g/dL (12.0-16.0) L 01/19/17 06:44 Hct 36.5 % (34.0-47.0) 01/19/17 06:44 MCV 78.0 fl (81.0-99.0) L 01/19/17 06:44 MCH 25.4 pg (27.0-31.0) L 01/19/17 06:44 MCHC 32.5 g/dL (33.0-37.0) L 01/19/17 06:44 RDW 17.1 % (11.5-14.5) H 01/19/17 06:44 Plt Count 301 K/uL (130-400) 01/19/17 06:44 MPV 8.9 fl (7.2-11.7) 01/19/17 06:44 Neut % (Auto) 67.4 % (50.0-75.0) 01/19/17 06:44 Lymph % (Auto) 21.2 % (20.0-40.0) 01/19/17 06:44 Delta % (Auto) 9.2 % (0.0-10.0) 01/19/17 06:44 Eos % (Auto) 1.7 % (0.0-4.0) 01/19/17 06:44 Baso % (Auto) 0.5 % (0.0-2.0) 01/19/17 06:44 Neut # 4.9 K/uL (1.8-7.0) 01/19/17 06:44 Lymph # 1.5 K/uL (1.0-4.3) 01/19/17 06:44 Delta # 0.7 K/uL (0.0-0.8) 01/19/17 06:44 Eos # 0.1 K/uL (0.0-0.7) 01/19/17 06:44 Baso # 0.0 K/uL (0.0-0.2) 01/19/17 06:44 PT 10.5 SECONDS (9.6-11.2) D 01/16/17 04:45 INR 1.01 (0.92-1.08) D 01/16/17 04:45 APTT 26.8 SECONDS (23.3-32.5) D 01/16/17 04:45 Sodium 141 mmol/l (132-148) 01/19/17 04:00 Potassium 3.9 MMOL/L (3.6-5.0) 01/19/17 04:00 Chloride 106 mmol/L (98-107) 01/19/17 04:00 Carbon Dioxide 20 mmol/L (22-30) L 01/19/17 04:00 Anion Gap 19 (10-20) 01/19/17 04:00 BUN 6 mg/dl (7-17) L 01/19/17 04:00 Creatinine 0.7 mg/dL (0.7-1.2) 01/19/17 04:00 Est GFR ( Amer) > 60 01/19/17 04:00 Est GFR (Non-Af Amer) > 60 01/19/17 04:00 POC Glucose (mg/dL) 96 mg/dL (65-110) 01/14/17 14:49 Random Glucose 74 mg/dL (65-105) 01/19/17 04:00 Calcium 8.4 mg/dL (8.4-10.2) 01/19/17 04:00 Total Bilirubin 0.8 mg/dl (0.2-1.3) 01/19/17 04:00 AST 218 U/L (14-36) H D 01/19/17 04:00 ALT 392 U/L (9-52) H D 01/19/17 04:00 Alkaline Phosphatase 182 U/L (38-126) H 01/19/17 04:00 Total Protein 6.8 G/DL (6.3-8.2) 01/19/17 04:00 Albumin 3.7 g/dL (3.5-5.0) 01/19/17 04:00 Globulin 3.1 gm/dL (2.2-3.9) 01/19/17 04:00 Albumin/Globulin Ratio 1.2 (1.0-2.1) 01/19/17 04:00 Urine Color Yellow (YELLOW) 01/14/17 19:20 Urine Clarity Cloudy (Clear) 01/14/17 19:20 Urine pH 6.0 (5.0-8.0) 01/14/17 19:20 Ur Specific [place] 1.024 (1.003-1.030) 01/14/17 19:20 Urine Protein Negative mg/dL (NEGATIVE) 01/14/17 19:20 Urine Glucose (UA) Neg mg/dL (Normal) 01/14/17 19:20 Urine Ketones Negative mg/dL (NEGATIVE) 01/14/17 19:20 Urine Blood Negative (NEGATIVE) 01/14/17 19:20 Urine Nitrate Negative (NEGATIVE) 01/14/17 19:20 Urine Bilirubin Negative (NEGATIVE) 01/14/17 19:20 Urine Urobilinogen 0.2-1.0 mg/dL (0.2-1.0) 01/14/17 19:20 Ur Leukocyte Esterase Mod Balbir/uL (Negative) 01/14/17 19:20 Urine RBC (Auto) 4 /hpf (0-3) H 01/14/17 19:20 Urine Microscopic WBC 62 /hpf (0-5) H 01/14/17 19:20 Ur Squamous Epith Cells 46 /hpf (0-5) H 01/14/17 19:20 Urine Bacteria Rare (<OCC) 01/14/17 19:20 Hepatitis A IgM Ab Negative (NEGATIVE) 01/14/17 19:45 Hep Bs Antigen Negative (NEGATIVE) 01/14/17 19:45 Hep B Core IgM Ab Negative (NEGATIVE) 01/14/17 19:45 Hepatitis C Antibody Negative (NEGATIVE) 01/14/17 19:45 - Hospital Course Hospital Course: This is a 41 y/o female admitted for abdominal apin. Noted to hav cholelithisis and cholecystitis. Started on IV antibiotics and when stabilized had cholecystectomy. Post op period was unremarkable except for pain in the op site and back pain. She responded well to p iv pain meds then switched to po. Diet was advanced and was sent home in stable condition. Discharge Exam - Head Exam Head Exam: NORMAL INSPECTION Discharge Plan - Follow Up Plan Condition: FAIR Disposition: HOME/ ROUTINE Referrals: Austin Davison MD [Primary Care Provider] -
--- NOTE | 2017-01-19 10:10 | CP.PCM.PN ---
Subjective - Date & Time of Evaluation Date of Evaluation: 01/19/17 Time of Evaluation: 10:03 - Subjective Subjective: General Surgery - Dr. Ortiz Pt S&E. LEE ANN. Pt is doing well post-operatively. She states her pain is improved, mild soreness from the incisions. She is tolerating clear liquid diet , will be advanced to regular. She is ambulating, denies any N/V, F/C, SOB/CP. Objective - Vital Signs/Intake and Output Vital Signs (last 24 hours): Temp Pulse Resp BP Pulse Ox 98.7 F 54 L 20 106/69 97 01/19/17 07:58 01/19/17 07:58 01/19/17 07:58 01/19/17 07:58 01/19/17 07:58 - Medications Medications: Current Medications Diphenhydramine HCl (Benadryl) 25 mg IVP Q6 PRN PRN Reason: Itching / Pruritus Last Admin: 01/18/17 21:45 Dose: 25 mg Hydromorphone HCl (Dilaudid) 1 mg IVP Q3 PRN PRN Reason: Pain, severe (8-10) Last Admin: 01/18/17 23:19 Dose: 1 mg Potassium Chloride/Sodium Chloride (Potassium Chl 20 Meq In Ns) 1,000 mls @ 99.01 mls/hr IV .Q10H6M [facility] Last Admin: 01/19/17 06:23 Dose: Not Given Morphine Sulfate (Morphine) 4 mg IVP Q4 PRN PRN Reason: Pain, moderate (4-7) Last Admin: 01/16/17 15:19 Dose: 4 mg Ondansetron HCl (Zofran Inj) 4 mg IVP Q4 PRN PRN Reason: Nausea/Vomiting Last Admin: 01/17/17 19:57 Dose: 4 mg Oxycodone/Acetaminophen (Percocet 5/325 Mg Tab) 1 tab PO Q4 PRN PRN Reason: Pain, moderate (4-7) Stop: 01/22/17 06:10 Last Admin: 01/19/17 06:20 Dose: 1 tab Pantoprazole Sodium (Protonix Inj) 40 mg IVP DAILY [facility] Last Admin: 01/19/17 08:35 Dose: 40 mg - Labs Labs: 01/19/17 06:44 01/19/17 04:00 PT 10.5 SECONDS (9.6-11.2) D 01/16/17 04:45 INR 1.01 (0.92-1.08) D 01/16/17 04:45 APTT 26.8 SECONDS (23.3-32.5) D 01/16/17 04:45 - Constitutional Appears: No Acute Distress - Head Exam Head Exam: ATRAUMATIC, NORMAL INSPECTION, NORMOCEPHALIC - Eye Exam Eye Exam: Normal appearance - Respiratory Exam Respiratory Exam: NORMAL BREATHING PATTERN. absent: Respiratory Distress - Cardiovascular Exam Cardiovascular Exam: REGULAR RHYTHM - GI/Abdominal Exam GI & Abdominal Exam: Soft. absent: Distended, Guarding, Tenderness, Rebound Additional comments: surgical incisions C/D/I with dermabond - Neurological Exam Neurological Exam: Alert, Oriented x3 - Psychiatric Exam Psychiatric exam: Normal Affect, Normal Mood - Skin Skin Exam: Dry, Intact Assessment and Plan - Assessment and Plan (Free Text) Assessment: 41F s/p lap cholecystectomy, POD #1 -Regular diet, if tolerates pt. is clear for discharge home from surgical standpoint -Pt. should F/U with PMD and GI regarding elevated LFTs to be sure they normalize -Pt. can resume regular diet and light activities, no heavy lifting over 10lbs for at least 4 weeks. She may shower, avoid any bathing or soaking in the tub. Pt should F/u in office with Dr. Ortiz in [address] Diana Atkins PGY2
[2017-01-19 16:13] VITALS: BP 110/73; PULSE 62; RESP 18; TEMP 98.8; O2SAT 96
[2017-01-19] MEDS ORDERED: Simethicone 80 mg Chewtab PO PRN (16:43)
== END 2017-01-19 19:01 | disposition home or self-care (01) | DRG 419 ==
LOC: EDBD → H.ER 13:54 → H.ERHOLD 18:43 → H.MEDSURG1 21:00
PROVIDERS: ADMIT Family Medicine; ATTEND Family Medicine
PROC: 0FT44ZZ Resection of Gallbladder, Percutaneous Endoscopic Approach (ICD-10-PCS; principal; 2017-01-18 10:45)
DX: K80.00 Calculus of gallbladder with acute cholecystitis without obstruction (principal); G89.29 Other chronic pain; M54.5 Low back pain; R79.1 Abnormal coagulation profile; Z72.0 Tobacco use; Z88.6 Allergy status to analgesic agent

== ENCOUNTER 2018-01-25 20:49 | Emergency (ER) | payer MEDICAID ==
[2018-01-25 20:49] VITALS: BMI 33.3
[2018-01-25 21:38] VITALS: BP 134/74; PULSE 84; RESP 16; TEMP 98; O2SAT 98
--- NOTE | 2018-01-25 23:50 | ED PDOC ---
HPI: Dental Pain/Injury Time Seen by Provider: 01/25/18 22:51 Chief Complaint (Nursing): Dental Pain Chief Complaint (Provider): dental pain History Per: Patient Additional Complaint(s): 42 year old female presents with dental pain for 1 week. She was seen a few days ago by dentist and was told she needs oral surgery to remove several molar teeth. She was started on amox and told to take NSAID's for pain but she still have severe pain. Patient denies fever or chills. She states she is tolerated liquids and soft foods only. Patient has an appt next week with oral surgeon but came to ED tonight due to worsening pain. PMD: Dr. Davison Past Medical History Reviewed: Historical Data, Nursing Documentation, Vital Signs Vital Signs: Last Vital Signs Temp 98.0 F 01/25/18 21:34 Pulse 84 01/25/18 21:34 Resp 16 01/25/18 21:34 BP 134/74 01/25/18 21:34 Pulse Ox 98 01/25/18 21:34 - Medical History PMH: No Chronic Diseases - Family History Family History: States: No Known Family Hx - Living Arrangements Living Arrangements: With Family - Social History Current smoker - smoking cessation education provided: Yes Alcohol: None Drugs: Denies - Home Medications Home Medications: Ambulatory Orders Medication Instructions Recorded Metoclopramide [Reglan] 10 mg PO Q6 PRN #20 tab 10/20/15 Cetirizine HCl [Zyrtec] 10 mg PO DAILY #10 capsule 01/14/17 Cyclobenzaprine [Flexeril] 10 mg PO TID #10 tab 01/14/17 oxyCODONE/Acetaminophen [Percocet 1 tab PO Q6 PRN #12 tab 01/19/17 5/325 mg Tab] Clindamycin [Cleocin] 1 tab PO QID #28 cap 01/25/18 traMADol [Ultram] 50 mg PO QID #20 tab 01/25/18 - Allergies Allergies/Adverse Reactions: Allergies Allergy/AdvReac Type Severity Reaction Status Date / Time morphine AdvReac ITCHING Verified 01/14/17 13:36 Review of Systems ROS Statement: Except As Marked, All Systems Reviewed And Found Negative Constitutional: Negative for: Fever, Chills ENT: Positive for: Other (dental pain) Physical Exam - Reviewed Nursing Documentation Reviewed: Yes Vital Signs Reviewed: Yes - Physical Exam Appears: Positive for: Well, Non-toxic, No Acute Distress Head Exam: Positive for: ATRAUMATIC, NORMAL INSPECTION Skin: Positive for: Normal Color. Negative for: Rash Eye Exam: Positive for: Normal appearance ENT: Positive for: Other (Tenderness to right upper and lower molar teeth with gingival erythema, no discrete abscess, airway patent, uvula midline) Neck: Positive for: Normal Cardiovascular/Chest: Positive for: Regular Rate, Rhythm Respiratory: Positive for: Normal Breath Sounds Neurologic/Psych: Positive for: Alert, Oriented - Laboratory Results Urine POC: Negative (Patient declined test, she is "100% certain" that she is not ) - ECG O2 Sat by Pulse Oximetry: 98 Pulse Ox Interpretation: Normal Medical Decision Making Medical Decision Makin42 year old with dental pain Plan: PO tramadol PO clindamycin Patient states tramadol helped with pain. Patient was given rx clindamycin and tramadol. She was advised to stop amox. Patient instructed to follow up [facility] with oral surgeon. Smoking cessation instructions given. Disposition - Clinical Impression Clinical Impression: Pain, dental - Patient ED Disposition Is Patient to be Admitted: No Counseled Patient/Family Regarding: Diagnosis, Need For Followup, Rx Given, Smoking Cessation - Disposition Referrals: Austin Davison MD [Primary Care Provider] - Disposition: Routine/Home Disposition Time: 23:47 Condition: STABLE Additional Instructions: Take meds as directed. Follow up as soon as possible with oral surgeon. Prescriptions: Clindamycin [Cleocin] 1 tab PO QID #28 cap traMADol [Ultram] 50 mg PO QID #20 tab Instructions: Dental Pain Forms: [facility] ([place]), [facility] ED School/Work Excuse
== END 2018-01-26 00:39 | disposition home or self-care (01) ==
LOC: H.ER 20:49
DX: K08.89 Other specified disorders of teeth and supporting structures (principal); Z88.5 Allergy status to narcotic agent